=== PATIENT | female | born 1945 | race Caucasian/White ===

== ENCOUNTER 2020-06-12 09:04 | Emergency (ER) | payer MEDICARE, BC ==
[~2020-06-12] VITALS: Ht 157.5 cm; Wt 64.4 kg
[~2020-06-12 09:04] MED LIST: VALIUM2 MG ORAL
--- NOTE | 2020-06-12 09:14 | NUR ---
ED Nurse Note: Pt ambulated to ed c/o right oliveros laceration since last night after hitting her dresser. Site dressed.
[2020-06-12 09:15] VITALS: BP 145/86
--- NOTE | 2020-06-12 09:40 | NUR ---
ED Nurse Note: BAYROND performed wound care. pt site cleaned, placed topical antibiotics with telfa dressing.
[2020-06-12] MEDS ORDERED: Neosporin Oint Ud Pkt TOPIC ONE (10:00)
[2020-06-12] MEDS ORDERED: Bacitracin Oint 15gm Tube TOPIC SCH (10:00)
--- NOTE | 2020-06-12 10:11 | NUR ---
ER DISCHARGE NOTE: Patient is cleared to be discharged per ERMD, pt is aox4, on room air, with stable vital signs. pt was given dc and prescription instructions, pt was able to verbalize understanding, pt id band removed. pt is able to ambulate with steady gait. pt took all belongings.
[2020-06-12] MEDS ORDERED: CEPHALEXIN500 MG ORAL (10:13)
[2020-06-12] MEDS ORDERED: ACETAMINOPHEN-1 EAC1 ORAL (10:13)
--- NOTE | 2020-06-12 10:13 | Emergency Room Report ---
History of Present Illness General Chief Complaint: Skin Rash/Abscess Source: Patient Present Illness HPI 75-year-old female presenting with right anterior oliveros skin abrasion after bumping into a cabinet recently. Tdap is up-to-date. Denies fevers, chills, fall, syncope, headache, loss of consciousness, neck pain, vomiting, chest pain, weakness or any other symptoms. She states she has very thin skin and has had previous experiences with this. She is followed by wound clinic. The patient's symptoms were gradual onset, severity was moderate, duration since 1 day. Quality: Stinging Past medical history: Denies Past surgical history: Denies Smoking: Denies Alcohol use: Denies Drug use: Denies Review of systems: CONST: No fevers or chills, No night sweats PULMONARY: No productive cough, No shortness of breath CARDIAC: No chest pain, No palpitations GI: No vomiting, No diarrhea , No melena_or_BRBPR : No dysuria, No hematuria, No discharge NEURO: No new_focal_weakness_or_numbness, No confusion, No vision changes 14 point Review of Systems is otherwise negative except per HPI Physical Exam: GENERAL: Awake_alert_ nontoxic, no acute distress Spo2 100% on RA -normal EYES: Extraocular muscles are intact. Conjunctivae clear. Lids without swelling ENT: External nose and ear normal_in_appearance. Oropharynx clear. Head_atraumatic, Moist_oral_mucosa NECK: No JVD. No meningismus. No thyromegaly. Supple. Trachea midline RESP: Normal respiratory effort. Symmetric rise. No stridor. Clear_to_auscultation_No_rales_No_wheezes CARDIAC: Regular rate and regular rhytm. No_significant pedal edema. ABDOMEN: Soft. Nondistended. Nontender_No_rebound_or_guarding. MSK: Normal muscle tone, without rigidity. Extremities without asymmetric deformity or swelling. SKIN: Right lower extremity: Large skin avulsion with surrounding ecchymosis to the mid anterior tibial area. No exposed bone. No exposed tendon. Compartments are soft and compressible. Sensation is intact to light touch. No arterial hemorrhage. NEUROLOGIC: Alert, oriented x3. Motor_and_sensation_grossly_intact. No truncal ataxia. Gait_normal Psych: Normal mood and affect, normal judgment and insight - COORDINATION OF CARE Case was discussed with: Patient Medical Decision Making/Plan: Well-appearing 75-year-old female presents with uncomplicated large right anterior oliveros skin tear. Wound was copiously irrigated with normal saline. Chlorhexidine was used sparingly around the wound edges. Tdap is up-to-date. Suture kit was used to approximate the skin as best as possible. The skin is too atrophic to hold sutures. Nonadhesive dressing and bacitracin were applied. Abdon wrap and wound bandage were given. Patient was instructed to follow-up with her primary care doctor in 2 days for wound check. She was also advised to keep the wound clean, dry, and intact and to avoid vigorous physical activity to prevent reinjury. Will discharge with antibiotics. Pertinent results reviewed with the patient. I educated the patient on the current treatment plan including the risks, benefits, and alternatives. I also discussed the extent and limitations of the current evaluation. The patient expressed understanding and agreement with plan. I recommended PMD follow-up within 1-2 days. Also advised that the patient return to the Emergency Department as soon as possible if they experience any new, persistent, or worsening symptoms. 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 Neurovascular intact. Compartments remain soft and compressible. Pt tolerated well without complications. Wound care instructions were discussed. Medical Decision Making Diagnostic Impression: Primary Impression: Skin tear Additional Impression: Skin abrasion Last Vital Signs Date Time Temp Pulse Resp B/P (MAP) Pulse Ox O2 Delivery O2 Flow Rate FiO2 06/12/20 09:15 98.4 78 16 145/86 95 Room Air Disposition: HOME, SELF-CARE Admit Decision Time: 10:12 Condition: Stable Scripts Acetaminophen With Codeine (T#3) (TYLENOL #3 TAB*) Y Tab 1 TAB ORAL Q8H PRN for For Pain, #20 TAB Prov: Yoon Bridges D.O. 06/12/20 Cephalexin* (KEFLEX*) 500 Mg Capsule 500 MG ORAL EVERY 12 HOURS, #14 CAP 0 Refills Prov: Yoon Bridges D.O. 06/12/20 Patient Instructions: Skin Tear Care, [id number] Additional Instructions: Instructions for patient/aircraft engine specialist: Follow up with your physician in 1-2 days for wound check. You may need referral to wound clinic. Keep wound clean, dry, and intact. Avoid vigorous physical activity Follow-up with your doctor sooner if your condition requires a more timely clinical reevaluation. Return to the emergency department immediately if you feel that your condition is worsening or if you have any new or concerning symptoms. Review your discharge instructions and take any prescriptions given as instructed. [facility] PROVIDES FREE OR LOW-COST HEALTH SERVICES TO PEOPLE WHO CAN SHOW PROOF THAT THEY LIVE IN [facility]. TO FIND MORE CLINICS PARTNERED WITH [facility] TO PROVIDE SERVICE, PLEASE CALL . Yoon Bridges D.O. Jun 12, 2020 10:13
== END 2020-06-12 10:12 | disposition home or self-care (01) ==
LOC: EMR 09:42
DX: S81.811A Laceration without foreign body, right lower leg, initial encounter (principal); S80.811A Abrasion, right lower leg, initial encounter; I10 Essential (primary) hypertension; W22.8XXA Striking against or struck by other objects, initial encounter; Y93.9 Activity, unspecified; Y92.9 Unspecified place or not applicable; Z88.8 Allergy status to other drugs, medicaments and biological substances
CPT/HCPCS: 99283

== ENCOUNTER 2020-06-13 10:00 | Outpatient (RCR) | payer MEDICARE, BC ==
[~2020-06-13] VITALS: Ht 157.5 cm; Wt 64.4 kg
[~2020-06-13 10:00] MED LIST changes: +ACETAMINOPHEN-1 EAC1 ORAL; +CEPHALEXIN500 MG ORAL
== END 2020-06-21 | disposition home or self-care (01) ==
LOC: WCC 10:00
DX: L97.823 Non-pressure chronic ulcer of other part of left lower leg with necrosis of muscle (principal); Z88.8 Allergy status to other drugs, medicaments and biological substances; I10 Essential (primary) hypertension; M19.90 Unspecified osteoarthritis, unspecified site
CPT/HCPCS: 11043; 11046

== ENCOUNTER 2020-06-27 11:56 | Outpatient (RCR) | payer MEDICARE, BC ==
[~2020-06-27] VITALS: Ht 157.5 cm; Wt 64.4 kg
== END 2020-07-22 | disposition home or self-care (01) ==
LOC: WCC 11:56
DX: L97.813 Non-pressure chronic ulcer of other part of right lower leg with necrosis of muscle (principal)
CPT/HCPCS: 11043; 11046; G0463